=== PATIENT | female | born 1960 | race Caucasian/White ===

== ENCOUNTER 2017-07-08 16:46 | Emergency (ER) | payer SELFPAY ==
[2017-07-08 20:04] VITALS: BP 126/86
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
== END 2017-07-08 20:22 | disposition home or self-care (01) ==
LOC: UCCORT 16:46
DX: S30.0XXA Contusion of lower back and pelvis, initial encounter (principal); Y04.2XXA Assault by strike against or bumped into by another person, initial encounter; Y93.89 Activity, other specified; Y92.89 Other specified places as the place of occurrence of the external cause; Y99.0 Civilian activity done for income or pay; Z87.891 Personal history of nicotine dependence
CPT/HCPCS: 99212; G0463

== ENCOUNTER 2017-07-24 18:53 | Emergency (ER) | payer OTHER ==
[2017-07-24 19:06] VITALS: BP 138/46
--- NOTE | 2017-07-24 19:17 | ED ---
Throat Pain/Nasal Congestion - HPI Summary HPI Summary: 57 yr old with history of sinusitis. Onset three days ago. The patient has pressure in her sinuses, post nasal drip, yellow drainage. No other complaints. - History of Current Complaint Chief Complaint: UCRespiratory Time Seen by Provider: 07/24/17 19:09 - Allergies/Home Medications Allergies/Adverse Reactions: Allergies Allergy/AdvReac Type Severity Reaction Status Date / Time No Known Allergies Allergy Verified 07/24/17 19:02 Home Medications: Home Medications busPIRone TAB* [Buspar TAB*] 1 tab BID 07/24/17 [History Confirmed 07/24/17] PMH/Surg Hx/FS Hx/Imm Hx Cardiovascular History: Denies: Hx Pacemaker/ICD Sensory History: Denies: Hx Hearing Aid Psychiatric History: Denies: Hx Panic Disorder - Surgical History Surgery Procedure, Year, and Place: appendectomy 1963 Infectious Disease History: No Infectious Disease History: Denies: Traveled Outside the [place] in Last 30 Days - Family History Known Family History: Negative: Hypertension - Social History Occupation: Employed Full-time Lives: With Family Alcohol Use: None Substance Use Type: Reports: None Smoking Status (MU): Former Smoker Review of Systems Constitutional: Negative Positive: Nasal Discharge, Other - sinus pressure All Other Systems Reviewed And Are Negative: Yes Physical Exam Triage Information Reviewed: Yes Vital Signs On Initial Exam: Initial Vitals Temp Pulse Resp BP Pulse Ox 98.4 F 83 16 138/46 98 07/24/17 19:03 07/24/17 19:03 07/24/17 19:03 07/24/17 19:03 07/24/17 19:03 Vital Signs Reviewed: Yes Appearance: Positive: Well-Appearing, No Pain Distress Skin: Positive: Warm, Skin Color Reflects Adequate Perfusion Head/Face: Positive: Normal Head/Face Inspection Eyes: Positive: EOMI ENT: Positive: Pharynx normal, TMs normal, Sinus tenderness Neck: Positive: Nontender Respiratory/Lung Sounds: Positive: Clear to Auscultation, Breath Sounds Present Cardiovascular: Positive: RRR. Negative: Murmur Abdomen Description: Positive: Nontender Musculoskeletal: Positive: Strength/ROM Intact Neurological: Positive: Sensory/Motor Intact, Alert, Oriented to Person Place, Time, CN Intact II-III Psychiatric: Positive: Normal - [place] Coma Scale Best Eye Response: 4 - Spontaneous Best Motor Response: 6 - Obeys Commands Best Verbal Response: 5 - Oriented Coma Scale Total: 15 Diagnostics - Vital Signs Vital Signs Temp Pulse Resp BP Pulse Ox 07/24/17 19:03 98.4 F 83 16 138/46 98 - Laboratory Lab Statement: Any lab studies that have been ordered have been reviewed, and results considered in the medical decision making process. EENT Course/Dx - Course Course Of Treatment: 57 yr old with sinusitis. Rx with Augmentin. - Diagnoses Provider Diagnoses: Sinusitis Discharge - Discharge Plan Condition: Good Disposition: HOME Prescriptions: Amoxicillin/Clavulanate TAB* [Augmentin TAB 875*] 875 mg PO BID #20 tab Patient Education Materials: Sinusitis (ED) Referrals: Emilia Pereira PA [Primary Care Provider] -
== END 2017-07-24 19:21 | disposition home or self-care (01) ==
LOC: UCCORT 18:53
DX: J32.9 Chronic sinusitis, unspecified (principal)
CPT/HCPCS: 99212; G0463

== ENCOUNTER 2018-02-24 15:28 | Emergency (ER) | payer OTHER ==
[2018-02-24 16:32] VITALS: BP 104/52
[2018-02-24] MEDS ORDERED: Naproxen TAB* 250 MG PO ONE (16:34)
--- NOTE | 2018-02-24 16:55 | UC ---
Lower Extremity/Ankle HPI - HPI Summary HPI Summary: 58 year old female presents with pain, bruising, and swelling to left foot at base of 4th and 5th toes after her dog stepped on her foot yesterday. She has been able walk and bear weight immediately after the injury and in the clinic. Denies numbness or tingling. - History of Current Complaint Chief Complaint: UCLowerExtremity Stated Complaint: LEFT PINKY TOE INJURY Time Seen by Provider: 02/24/18 16:33 Hx Obtained From: Patient Hx Last Menstrual Period: age 38's Onset/Duration: Sudden Onset Severity Initially: Moderate Severity Currently: Moderate Pain Intensity: 8 Aggravating Factor(s): Ambulation Alleviating Factor(s): Rest Able to Bear Weight: Yes - Allergies/Home Medications Allergies/Adverse Reactions: Allergies Allergy/AdvReac Type Severity Reaction Status Date / Time No Known Allergies Allergy Verified 02/24/18 16:25 Home Medications: Home Medications NK [No Home Medications Reported] 02/24/18 [History Confirmed 02/24/18] PMH/Surg Hx/FS Hx/Imm Hx Previously Healthy: Yes - Denies significant PMH - Surgical History Surgical History: Yes Surgery Procedure, Year, and Place: appendectomy 1962 - Family History Family History: Noncontributory - Social History Occupation: Employed Full-time Lives: With Family Alcohol Use: None Substance Use Type: None Smoking Status (MU): Current Some Day Smoker Review of Systems Constitutional: Negative Skin: Bruising Motor: Negative Neurovascular: Negative Musculoskeletal: Other: - See HPI Is Patient Immunocompromised?: No All Other Systems Reviewed And Are Negative: Yes Physical Exam Triage Information Reviewed: Yes Appearance: Well-Appearing, No Pain Distress, Well-Nourished Vital Signs: Initial Vital Signs Temp 97.6 F 02/24/18 16:25 Pulse 70 02/24/18 16:25 Resp 18 02/24/18 16:25 BP 104/52 02/24/18 16:25 Pulse Ox 99 02/24/18 16:25 Vital Signs Reviewed: Yes Respiratory: Positive: No respiratory distress Cardiovascular: Positive: Pulses Normal, Brisk Capillary Refill Musculoskeletal: Positive: Strength Intact, ROM Intact, No Edema, Other: - Tenderness left dorsal foot at base of 4th and 5th toes. No obvious deformity. Neurological: Positive: Alert, Other: - [place] intact distally. Skin: Positive: Other - Eccymosis dorsal left foot at base of 4th and 5th toes. Diagnostics - Radiology No standard instances Radiology Interpretation Completed By: Radiologist - Patient Name: LATOSHA ELLIS Medical Record#: [id number] Ordering Physician: Miguel Ángel Herrera NP Acct.#: [id number] : 1960 Age: 58 Sex: F Location: [facility] Exam Date: 02/24/18 163 ADM Status: REG ER Order Information: FOOT LEFT 3+ VWS Accession Number: [id number] CPT: 56738 Indication: Left foot injury. 4 views of left foot demonstrates fracture at the base of the fifth proximal phalanx. Minimal displacement is noted. IMPRESSION: Fracture through the base of the proximal phalanx of the fifth digit without significant displacement. Lower Extremity Course/Dx - Course Course Of Treatment: 58 year old female with pain, bruising, and swelling to left foot after her dog stepped on her foot. X-ray showed a mildly displaced fracture of the base of the proximal phalanx of the fifth digit. Patient was placed in a post-op shoe. CMS intact. Recommend conservative treatment with NSAIDs and RICE. Patient is to follow up with orthopedic surgery. - Differential Dx/Diagnosis Provider Diagnoses: minimally displaced fracture proximal 5th phalanx of the left foot Discharge - Sign-Out/Discharge Documenting (check all that apply): Patient Departure All imaging exams completed and their final reports reviewed: Yes - Discharge Plan Condition: Stable Disposition: HOME Patient Education Materials: Toe Fracture (ED) Forms: *Gen. Provider Communication Referrals: Emilia Pereira PA [Primary Care Provider] - Kenroy Alvarez MD [Medical Doctor] - 5 Days Additional Instructions: The x-ray performed in the clinic today showed a fracture of the first bone of your pinky toe. Rest the foot as much as possible. You may continue to walk and bear weight as tolerated. Wear the postop shoe to provide support for the fracture. You may remove the shoe at bedtime and to shower but should wear at all other times. Apply ice to the affected area for 15-20 minutes 3-4 times a day to help reduce any swelling. Keep the foot elevated to help reduce swelling. You may take [id number] pain medication such as acetaminophen (Tylenol) or ibuprofen (Advil, Motrin) according to directions as needed for pain. I have given you a referral to the orthopedic surgeon for follow-up within the next 5 days. Please call for an appointment. Seek immediate medical attention if he should have pain that is not managed by [id number] pain medication, increased swelling, or you develop any numbness or tingling, or any worsening of symptoms. - Billing Disposition and Condition Condition: STABLE Disposition: Home - Attestation Statements Provider Attestation: Per institutional requirements, I have reviewed the chart, however, I was not consulted specifically or made aware of this patient by the midlevel provider. I did not personally evaluate, interact with , or disposition this patient.
--- NOTE | 2018-02-24 17:47 | RAD ---
Indication: Left foot injury. 4 views of left foot demonstrates fracture at the base of the fifth proximal phalanx. Minimal displacement is noted. IMPRESSION: Fracture through the base of the proximal phalanx of the fifth digit without significant displacement.
== END 2018-02-24 18:22 | disposition home or self-care (01) ==
LOC: UCCORT 15:28
DX: S92.512A Displaced fracture of proximal phalanx of left lesser toe(s), initial encounter for closed fracture (principal); W54.8XXA Other contact with dog, initial encounter; Y92.9 Unspecified place or not applicable; Z72.0 Tobacco use
CPT/HCPCS: 99212; A9270-GY; G0463